=== PATIENT | female | born 1945 | race Caucasian/White ===

== ENCOUNTER 2019-01-19 05:42 | Day surgery (SDC) | payer MEDICARE ==
[2019-01-19] MEDS ORDERED: Lactated Ringers 1,000 ML IV SCH (06:30)
[2019-01-19] MEDS ORDERED: DIPRIVAN 200 MG/20 ML IV ONE (07:46)
--- NOTE | 2019-01-19 08:04 | HP ---
DATE OF SURGERY: 01/19/2019 ADMISSION DIAGNOSIS: Blood in the stool. ANTICIPATED PROCEDURE: Colonoscopy. HISTORY OF PRESENT ILLNESS: A 73 year-old with no family history. No complaints. No recent exam. PAST MEDICAL HISTORY: ALLERGIES: NONE. MEDICATIONS: None. PAST SURGICAL HISTORY: Cholecystectomy. Hysterectomy. SOCIAL HISTORY: Negative. FAMILY HISTORY: Negative. REVIEW OF SYSTEMS: Negative. PHYSICAL EXAMINATION: VITAL SIGNS: Normal. CHEST: Clear. COR: Regular. ABDOMEN: Satisfactory. IMPRESSION: Blood per stool. PLAN: Colonoscopy.
[2019-01-19] MEDS ORDERED: Lactated Ringers 1,000 ML IV ONE (08:40)
[2019-01-19 09:19] VITALS: O2SAT 100
[2019-01-19 09:52] VITALS: BP 105/65; PULSE 61
--- NOTE | 2019-01-19 13:11 | OP ---
SURGERY DATE/TIME: 01/19/2019819 PREOPERATIVE DIAGNOSIS: Heme-positive stool. POSTOPERATIVE DIAGNOSIS: Large sessile rectal polyp on the second rectal valve of [place]. PROCEDURES: 1) Colonoscopy complete to cecum. 2) Hot snare polypectomy x1 of a large polyp. SURGEON: Silvio Mota M.D. PLACEMENT SPECIALIST: Dre Figueredo M.D. ANESTHESIA: MAC. COMPLICATIONS: None. CONDITION: Stable. INDICATION: A patient requiring evaluation. DESCRIPTION OF PROCEDURE: Taken to endoscopy. Anal digital examination satisfactory. Scope introduced. On the second rectal valve, a large 80% pedunculated 20% sessile tumor was present. Scope advanced to the cecum. Base of cecum, ileocecal valve and appendiceal orifice normal. Ascending, hepatic, transverse, splenic, descending, sigmoid was normal. This polyp was taken in two bites with hot snare. It was close to being totally removed. It was touched up with hot biopsy forceps. Hemostasis was adequate. It was all placed in a bag and removed. IMPRESSION: If this benign will come back in three months and refulgurate this area. If it is malignant, we will discuss this.
== END 2019-01-19 10:15 | disposition home or self-care (01) ==
LOC: SDC 05:42
PROVIDERS: ATTEND Surgery
DX: D12.8 Benign neoplasm of rectum (principal); K92.1 Melena
CPT/HCPCS: 99100; J2704

== ENCOUNTER 2019-05-25 07:59 | Day surgery (SDC) | payer MEDICARE ==
--- NOTE | 2019-05-25 07:47 | HP ---
DATE OF SURGERY: 05/25/2019 ANTICIPATED PROCEDURE: Limited C-scope. HISTORY OF PRESENT ILLNESS: The patient had a tubulovillous adenoma with focal high-grade dysplasia. She presents for follow up limited exam. She is 73 years old. Three month follow up PAST MEDICAL HISTORY: ALLERGIES: MEPERIDINE. MEDICATIONS: None. PAST SURGICAL HISTORY: Cholecystectomy. Hysterectomy. SOCIAL HISTORY: Negative. FAMILY HISTORY: Negative. REVIEW OF SYSTEMS: Negative. PHYSICAL EXAMINATION: VITAL SIGNS: Normal. CHEST: Clear. COR: Regular. IMPRESSION: Path report tubulovillous adenoma with high-grade dysplasia located at the second rectal valve. PLAN: Short follow up.
[~2019-05-25 07:59] MED LIST: Lactated Ringers 1,000 ML IV SCH
[2019-05-25] MEDS ORDERED: Lactated Ringers 1,000 ML IV ONE ×2 (08:05→10:33)
[2019-05-25] MEDS ORDERED: DIPRIVAN 200 MG/20 ML IV ONE ×2 (08:07→08:19)
[2019-05-25] MEDS ORDERED: Ketamine HCl 50 MG/ML ONE (08:08)
[2019-05-25 10:56] VITALS: O2SAT 99
--- NOTE | 2019-05-25 11:01 | OP ---
SURGERY DATE/TIME: 05/25/2019 1007 PREOPERATIVE DIAGNOSIS: Atypical sessile polyp of the rectum follow up. POSTOPERATIVE DIAGNOSIS: A 1.4 cm polypoid lesion at the previous site. PROCEDURE: Hot snare polypectomy of 1.4 cm polyp, limited exam to 20 cm. SURGEON: Silvio Mota M.D. ANESTHESIA: MAC. COMPLICATIONS: None. CONDITION: Stable. INDICATION: The patient has a sessile polyp in the rectum. She presents for three month follow up. DESCRIPTION OF PROCEDURE: She is taken to endoscopy. MAC sedation provided. Anal digital examination satisfactory. Scope introduced. Polyp is present on the second rectal valve. It was advanced up to 20. The exam was normal up to 20. It was brought back to the polyp and it was taken with a snare and the base was excellent totally removed, pathology pending. The patient tolerated the procedure satisfactorily. We estimate to re-examine the patient in six months with a similar process of limited colonoscopy with a single enema.
[2019-05-25 11:03] VITALS: BP 136/48; PULSE 64
== END 2019-05-25 11:10 | disposition home or self-care (01) ==
LOC: SDC 07:59
PROVIDERS: ATTEND Surgery
DX: Z09 Encounter for follow-up examination after completed treatment for conditions other than malignant neoplasm (principal); D12.8 Benign neoplasm of rectum; Z87.19 Personal history of other diseases of the digestive system
CPT/HCPCS: 99100; J2704

== ENCOUNTER 2020-02-15 08:00 | Day surgery (SDC) | payer MEDICARE ==
--- NOTE | 2020-02-09 11:25 | HP ---
DATE OF SURGERY: 02/15/2020 HISTORY OF PRESENT ILLNESS: The patient presents with six month follow up from a colonoscopy. She had a colonoscopy and was found to have large polyp in the rectal area. She had several bites of this polyp with a hot snare. Close to being totally removed. She presents for follow up for re-evaluation of this area. She had a tubulovillous adenoma with high grade dysplasia on the pathology of her last colonoscopy. PAST MEDICAL HISTORY: None reported. PAST SURGICAL HISTORY: Cholecystectomy. Hysterectomy. ALLERGIES: MEPERIDINE. MEDICATIONS: None reported. FAMILY HISTORY: None reported. SOCIAL HISTORY: None reported. REVIEW OF SYSTEMS: CONSTITUTIONAL: Denies fever or chills. CHEST: Denies shortness of breath. CVS: Denies chest pain. ABDOMEN: Denies abdominal, nausea, vomiting, diarrhea, constipation or rectal bleeding. : Denies dysuria or hematuria. PHYSICAL EXAMINATION: GENERAL: No acute distress. CHEST: Nonlabored. No shortness of breath. CVS: Regular rate and rhythm. ABDOMEN: Soft, nontender to palpation. EXTREMITIES: No edema. NEUROLOGIC: Alert. PSYCHIATRIC: Appropriate. IMPRESSION: Follow up for piecemeal removal of large rectal polyp with high grade dysplasia. PLAN: Limited colonoscopy. As dictated by Zully Martinez NP.
[2020-02-15] MEDS ORDERED: Lactated Ringers 1,000 ML IV ONE (08:11)
[2020-02-15] MEDS ORDERED: Zofran 4 MG/2 ML VIAL ONE (11:21)
[2020-02-15] MEDS ORDERED: Ketamine HCl 50 MG/ML ONE (11:21)
[2020-02-15] MEDS ORDERED: DIPRIVAN 200 MG/20 ML IV ONE (11:21)
[2020-02-15 12:49] VITALS: O2SAT 96
[2020-02-15 12:56] VITALS: BP 140/71; PULSE 59
--- NOTE | 2020-02-15 13:52 | OP ---
SURGERY DATE/TIME: 02/15/2020 1118 PREOPERATIVE DIAGNOSIS: Six month follow up of atypical rectal polyp. POSTOPERATIVE DIAGNOSIS: I believe it is totally gone. Very nice healed scar. Just off to the lateral edge just a small 2 mm bump that was taken with hot biopsy forceps. The exam was limited to 20 cm with hot polypectomy x1. PROCEDURE: Colonoscopy complete to cecum. SURGEON: Silvio Mota M.D. ANESTHESIA: MAC. COMPLICATIONS: None. CONDITION: Stable. INDICATION: Patient requiring evaluation. DESCRIPTION OF PROCEDURE: Taken to endoscopy. MAC sedation provided. Anal digital examination satisfactory. Scope introduced. Scar was visible. Scope advanced about 20 cm and pulled back to 8 cm. It was on a rectal fold. As noted, I believe the previous polyp is totally gone. There was probably just a hyperplastic area at one lateral corner that was taken with hot biopsy forceps. PLAN: Follow up in two and a half years for a three year follow up exam.
== END 2020-02-15 13:00 | disposition home or self-care (01) ==
LOC: SDC 08:00
PROVIDERS: ATTEND Surgery
DX: Z09 Encounter for follow-up examination after completed treatment for conditions other than malignant neoplasm (principal); Z87.19 Personal history of other diseases of the digestive system; K62.1 Rectal polyp; K63.5 Polyp of colon
CPT/HCPCS: 88305; 99100; J2405; J2704

== ENCOUNTER 2021-04-13 16:02 | Emergency (ER) | payer MEDICARE ==
[2021-04-13] MEDS ORDERED: TYLENOL 325 MG PO STA (16:57)
--- NOTE | 2021-04-13 17:13 | ERPHSYRPT ---
- History of Present Illness Time Seen by Provider: 04/13/21 16:23 Source: patient Exam Limitations: no limitations Patient Subjective Stated Complaint: Fall Triage Nursing Assessment: Patient ambulated back to ED and transferred self to bed. Patient A+O X3. Patient's skin pink, warm and dry. Patient complains of tripping over a couple of steps landing on her chest. Patient complains of right sided breast/rib pain 02/08. No bruising or visible injuries noted. Physician History: 75 years old female presented in the ER with chief complaint of fall. Patient reports she tripped on steps while getting into her living room and fell forward hitting her chest against the concrete floor and did hit her right forehead/eyebrow area with a small abrasion with minimal bleeding which stopped after applying pressure. Does not have any headache, no visual disturbance, no neck pain, no dizziness or lightheadedness before or after the fall. No loss of consciousness. Is complaining of some discomfort in the anterior mid chest with palpation and taking a deep breath but no difficulty breathing otherwise. No injury anywhere else. Up-to-date with tetanus. Occurred: just prior to arrival Reason for Fall: tripped, fell from standing pos Injuries/Pain Location: face, chest Loss of Consciousness: no loss of consciousness Quality: dullness Severity of Pain-Max: moderate Severity of Pain-Current: moderate Modifying Factors: Improves With: immobilization. Worsens With: movement Associated Symptoms (Fall): chest pain, No abdominal pain, No back pain, No confusion, No dizziness, No extremity injury, No muscle spasms, No nausea, No neck pain, No ringing in ears, No seizures, No shortness of breath, No slurred speech, No trouble walking, No vomiting, No vision changes Allergies/Adverse Reactions: meperidine [From Demerol] Adverse Reaction (Verified 04/13/21 16:38) Vomiting Home Medications: Simvastatin 10 mg [Zocor 10MG] 1 tab PO DAILY 04/13/21 [History] Hx Influenza Vaccination/Date Given: No Hx Pneumococcal Vaccination/Date Given: No Immunizations Up to Date: Yes Travel Risk - International Travel Have you traveled outside of the country in past 3 weeks: No - Coronavirus Screening Are you exhibiting any of the following symptoms?: No Close contact with a COVID-19 positive Pt in past 14-21 Days: No - Vaccine Status Have you recieved a Covid-19 vaccination: Yes [employer]: Pfizer - Vaccination Dates Date of 2cond Vaccination (if applicable): waiting - Review of Systems Constitutional: No Symptoms Eyes: No Symptoms, Other (Right eyebrow area lesion) Ears, Nose, & Throat: No Symptoms Respiratory: No Symptoms Cardiac: Chest Pain Abdominal/Gastrointestinal: No Symptoms Genitourinary Symptoms: No Symptoms Musculoskeletal: No Symptoms Neurological: No Symptoms Psychological: No Symptoms Endocrine: No Symptoms Hematologic/Lymphatic: No Symptoms Immunological/Allergic: No Symptoms - Past Medical History Pertinent Past Medical History: Yes Neurological History: No Pertinent History ENT History: No Pertinent History Cardiac History: No Pertinent History Respiratory History: No Pertinent History Endocrine Medical History: No Pertinent History Musculoskeletal History: No Pertinent History GI Medical History: No Pertinent History History: No Pertinent History Psycho-Social History: No Pertinent History Female Reproductive Disorders: No Pertinent History - Past Surgical History Past Surgical History: Yes Neuro Surgical History: No Pertinent History Cardiac: No Pertinent History Respiratory: No Pertinent History Gastrointestinal: Appendectomy Genitourinary: No Pertinent History Musculoskeletal: Other Female Surgical History: Hysterectomy, Other Other Surgical History: "prolapse surgery" disc replaced in neck in 1986, appendectomy as a child - Social History Smoking Status: Never smoker Exposure to second hand smoke: No Drug Use: none Patient Lives Alone: No - Female History Hx Now: No - Nursing Vital Signs Nursing Vital Signs: Initial Vital Signs Temperature 98.6 F 04/13/21 16:39 Pulse Rate 81 04/13/21 16:39 Respiratory Rate 18 04/13/21 16:39 Blood Pressure 135/71 04/13/21 16:39 O2 Sat by Pulse Oximetry 99 04/13/21 16:39 Pain Scale Pain Intensity 7 - Donna Coma Score Best Eye Response (Donna): (4) open spontaneously Best Verbal Response ([place]): (5) oriented Best Motor Response (Donna): (6) obeys commands Donna Total: 15 - Physical Exam General Appearance: no apparent distress, alert Head Injury: contusions, lacerations (Superficial right lateral eyebrow area), tenderness (Right eyebrow area), No active bleeding, No Toussaint's Sign, No raccoon eyes, No swelling Eye Exam: PERRL/EOMI, eyes nml inspection ENT Exam: airway nml, evidence of ENT injury, No dental injury Neck Exam: supple, trachea midline, full range of motion, normal alignment Respiratory/Chest Exam: chest tenderness (Anterior mid to lower chest wall sternum area), normal breath sounds, No respiratory distress Cardiovascular Exam: normal heart sounds, regular rate/rhythm Gastrointestinal Exam: soft, No tenderness Back Exam: normal inspection, normal range of motion Extremity Exam: normal inspection, normal range of motion, capillary refill <3 sec, pelvis stable Neurologic Exam: alert, oriented x 3, cooperative, picker and sorter load and unload II-XII nml as tested, normal mood/affect, nml cerebellar function, nml station & gait, sensation nml Skin Exam: normal color SpO2 Interpretation: normal SpO2: 99 O2 Delivery: Room Air Ordered Tests: Active Orders 24 hr Category Date Time Status EKG-ER Only STAT Care 04/13/21 17:11 Completed CERVICAL SPINE WO CONTRAST [CT] Stat Exams 04/13/21 16:57 Taken CHEST 2 VIEWS (PA AND LAT) Stat Exams 04/13/21 17:33 Taken HEAD WITHOUT CONTRAST [CT] Stat Exams 04/13/21 16:57 Taken TROPONIN Q3H Lab 04/13/21 17:43 Completed Medication Summary Discontinued Medications Generic Name Dose Route Start Last Admin Trade Name Hugoq PRN Reason Stop Dose Admin Acetaminophen 650 mg 04/13/21 16:57 04/13/21 17:40 Tylenol 325 Mg PO 04/13/21 16:58 650 mg STAT STA Administration Acetaminophen Confirm 04/13/21 17:39 Tylenol 325 Mg Administered 04/13/21 17:40 Dose 650 mg .ROUTE .[employer] Lab/Rad Data: Laboratory Results 04/13/21 Range/Units 17:43 Troponin I < 0.012 (0.000-0.034) ng/mL - Progress Progress: improved, re-examined Progress Note: 04/13/21 19:23 75 years old is evaluated for tripping and falling forward hitting her right forehead and chest wall. Minimal tenderness on the chest wall without any crepitus or step in deformity. Patient refused EKG. Troponins are normal. Chest x-ray reviewed by me did not reveal any obvious trauma related finding, official report is pending and patient does not want to stay in the ER and wants to leave. CT head and cervical spine are negative for any acute findings. Abrasion is clean. Patient is up-to-date with immunization. Nonfocal neuro exam otherwise. No injury anywhere else. Discussed signs symptoms of worsening needing return to ER which she seems understanding. Stable for discharge. Counseled pt/family regarding: lab results, diagnosis, need for follow-up, rad results - Departure Departure Disposition: Home Clinical Impression: Forehead contusion Qualifiers: Encounter type: initial encounter Qualified Code(s): S00.83XA - Contusion of other part of head, initial encounter Contusion, chest wall Qualifiers: Encounter type: initial encounter Laterality: unspecified laterality Qualified Code(s): S20.219A - Contusion of unspecified front wall of thorax, initial encounter Fall Qualifiers: Encounter type: initial encounter Qualified Code(s): W19.XXXA - Unspecified fal l, initial encounter Condition: Stable Critical Care Time: No Referrals: CELESTINO VELEZ MD [Primary Care Provider] - (1-2 days for reevaluation) Instructions: Closed Head Injury (DC), Contusion (DC) Additional Instructions: Take Tylenol as needed. Follow head injury instructions and return to ER for any worsening. Keep your abrasion clean and apply bacitracin. Follow-up with primary care for reevaluation.
[2021-04-13] MEDS ORDERED: TYLENOL 325 MG ONE (17:39)
[2021-04-13 17:43] VITALS: BP 104/62; PULSE 72
[2021-04-13 22:04] VITALS: O2SAT 99
--- NOTE | 2021-04-14 08:47 | XRAY ---
Indication: Status post fall. Multiple contiguous axial images obtained through the head without contrast. Comparison: None Age-appropriate global atrophy and minimal periventricular degenerative micro-ischemia bilaterally. No acute intracranial hemorrhage, abnormal extra-axial fluid collection, or mass effect. Fourth ventricle is midline without hydrocephalus. [place]-white matter differentiation preserved. Bony calvarium intact. Visualized paranasal sinuses and mastoid air cells are clear. Impression: Nonacute senile brain. Comment: Preliminary interpretation made by [facility]. No critical discrepancy.
--- NOTE | 2021-04-14 08:47 | XRAY ---
Indication: Status post fall. Comparison: None PA/lateral chest demonstrates normal heart and lungs with incidental tiny calcified granulomas. Bony thorax intact with mild osteopenia and degenerative changes. Comment: Preliminary interpretation made by [facility]. No critical discrepancy.
--- NOTE | 2021-04-14 08:51 | XRAY ---
Indication: Status post fall. Multiple contiguous axial images obtained through the cervical spine. Sagittal and coronal reformatted images obtained. Comparison: None Axial images negative for acute fracture, suspicious bony lesions, or spinal canal stenosis. Minimal C4-C5 endplate spurring and moderate multilevel bilateral degenerative facet hypertrophy. There has been C5-C6 fusion. Sagittal and coronal reformatted images demonstrates cervical lordotic straightening, positional versus paraspinal spasm. Minimal C4-C5 disc space narrowing. No acute compression fracture, subluxation, or jumped facet. Normal appearing craniocervical junction. Visualized noncontrasted soft tissues demonstrates minimal bilateral carotid calcifications. Right thyroid is heterogeneous with a inferior 1.8 x 1.9 cm heterogeneous nodule. Lung apices are clear. Impression: 1. Cervical lordotic straightening, positional versus paraspinal spasm. Negative for acute fracture/subluxation. 2. Multilevel degenerative changes and C5-C6 fusion. 3. Incidental heterogeneous right thyroid with inferior pole nodule. Sonogram may yield further information if clinically warranted. Comment: Preliminary interpretation made by [facility]. No critical discrepancy.
== END 2021-04-13 19:31 | disposition home or self-care (01) ==
LOC: ED 16:02
DX: S00.83XA Contusion of other part of head, initial encounter (principal); S20.219A Contusion of unspecified front wall of thorax, initial encounter; W10.8XXA Fall (on) (from) other stairs and steps, initial encounter; S00.211A Abrasion of right eyelid and periocular area, initial encounter; R07.89 Other chest pain; Z79.899 Other long term (current) drug therapy
CPT/HCPCS: 36415; 70450; 71046; 72125; 84484; 93005; 99284; A9270-GY

== ENCOUNTER 2023-02-10 14:53 | Day surgery (SDC) | payer MEDICARE ==
[2023-02-10] MEDS ORDERED: BUPIVACAINE 0.5% VIAL IJ ONE (14:54)
[2023-02-10] MEDS ORDERED: LIDOCAINE HCL 1% 50 MG/5 ML VL PF IJ ONE (14:54)
[2023-02-10] MEDS ORDERED: Depo-Medrol 40 MG/ML IM ONE (14:54)
--- NOTE | 2023-02-10 19:19 | XRAY ---
Indication: Right shoulder and right subacromial bursa injection. Intraoperative fluoroscopy provided for 18 seconds. 2 digital spot images submitted for interpretation demonstrates needle tip projecting over the right glenohumeral joint superiorly. Second needle tip subacromial. Small amount of contrast injected for both needle tip placement. Correlate with intraoperative findings/report.
--- NOTE | 2023-02-11 10:13 | XRAY ---
18 seconds of fluoroscopy was used in surgery for a right intra-articular shoulder and subacromial bursa injection.
== END 2023-02-10 17:27 | disposition home or self-care (01) ==
LOC: SDC-PAIN 14:53
PROVIDERS: ATTEND Psychiatry & Neurology Pain Medicine
DX: M19.011 Primary osteoarthritis, right shoulder (principal); M75.51 Bursitis of right shoulder; Z79.899 Other long term (current) drug therapy
CPT/HCPCS: 20610; 73030; 77002; J1030; J2001; Q9966

== ENCOUNTER 2023-08-24 18:04 | Emergency (ER) | payer MEDICARE ==
[2023-08-24 18:41] VITALS: TEMP 98.8
[2023-08-24 20:21] VITALS: BP 133/68; PULSE 77; RESP 18; O2SAT 96
--- NOTE | 2023-08-24 21:06 | ERPHSYRPT ---
- History of Present Illness Time Seen by Provider: 08/24/23 18:45 Source: patient Exam Limitations: no limitations Patient Subjective Stated Complaint: mouth pain Triage Nursing Assessment: patient reports mouth pain and a lesion under tongue on mucosa. area appears to have something in it that is white in color Physician History: Patient is a 77-year-old female presents to our emergency department for evaluation of a lesion under her tongue. The lesion is near the submandibular gland duct, [place]'s duct. There is tenderness at this area. Pain reproduced with palpation. Pain improved with rest. No trauma. No difficulty swallowing or breathing. Symptoms are mild to moderate in intensity. Patient declined pain medication. Patient voices no other complaints at this time. Portions of this note were created with voice recognition technology. There may be grammatical, spelling, punctuation or sound alike errors Timing/Duration: today Severity: moderate Allergies/Adverse Reactions: meperidine [From Demerol] Adverse Reaction (Verified 08/24/23 18:43) Vomiting Home Medications: Simvastatin 10 mg [Zocor 10MG] 100 tab PO DAILY 04/13/21 [History] Biotin 5,000 mcg PO DAILY 03/19/23 [History] Ubidecarenone [Co Q-10] 200 mg PO DAILY 03/19/23 [History] Sertraline HCl 50 mg [Zoloft 50 mg Tablet] 50 mg PO QDP 08/24/23 [History] Hx Influenza Vaccination/Date Given: Yes Hx Pneumococcal Vaccination/Date Given: No Travel Risk - International Travel Have you traveled outside of the country in past 3 weeks: No - Coronavirus Screening Are you exhibiting any of the following symptoms?: No Close contact with a COVID-19 positive Pt in past 14-21 Days: No - Vaccine Status Have you recieved a Covid-19 vaccination: Yes Rn Otolaryngology: Unknown - Vaccination Dates Dates if Unknown: unknown - Review of Systems Constitutional: No Symptoms, No Fever, No Chills Eyes: No Symptoms Ears, Nose, & Throat: No Symptoms Respiratory: No Symptoms, No Cough, No Dyspnea Cardiac: No Symptoms, No Chest Pain, No Edema, No Syncope Abdominal/Gastrointestinal: No Symptoms, No Abdominal Pain, No Nausea, No Vomiting, No Diarrhea Genitourinary Symptoms: No Symptoms, No Dysuria Musculoskeletal: No Symptoms, No Back Pain, No Neck Pain Skin: No Symptoms, No Rash Neurological: No Symptoms, No Dizziness, No Focal Weakness, No Sensory Changes Psychological: No Symptoms Endocrine: No Symptoms Hematologic/Lymphatic: No Symptoms Immunological/Allergic: No Symptoms All Other Systems: Reviewed and Negative - Past Medical History Pertinent Past Medical History: Yes Neurological History: TIA ENT History: No Pertinent History Cardiac History: High Cholesterol Respiratory History: Pneumonia Endocrine Medical History: No Pertinent History Musculoskeletal History: No Pertinent History GI Medical History: No Pertinent History History: No Pertinent History Psycho-Social History: No Pertinent History Female Reproductive Disorders: No Pertinent History Other Medical History: SURGICAL HISTORY: HYSTERECTOMY, LEFT ELBOW SCOPE - Past Surgical History Past Surgical History: Yes Neuro Surgical History: No Pertinent History Cardiac: No Pertinent History Respiratory: No Pertinent History Gastrointestinal: Appendectomy Genitourinary: No Pertinent History Musculoskeletal: Other Female Surgical History: Hysterectomy, Other Other Surgical History: "prolapse surgery" disc replaced in neck in 1986, appendectomy as a child - Social History Smoking Status: Never smoker Exposure to second hand smoke: No Drug Use: none Patient Lives Alone: No - Nursing Vital Signs Nursing Vital Signs: Initial Vital Signs Temperature 98.8 F 08/24/23 18:32 Pulse Rate 91 H 08/24/23 18:32 Respiratory Rate 16 08/24/23 18:32 Blood Pressure 143/61 08/24/23 18:32 O2 Sat by Pulse Oximetry 97 08/24/23 18:32 Pain Scale Pain Intensity 6 - Physical Exam General Appearance: no apparent distress, alert Eye Exam: PERRL/EOMI, eyes nml inspection Ears, Nose, Throat Exam: normal ENT inspection, TMs normal, pharynx normal, moist mucous membranes Neck Exam: normal inspection, non-tender, supple, full range of motion Respiratory Exam: normal breath sounds, lungs clear, No respiratory distress Cardiovascular Exam: regular rate/rhythm, normal heart sounds, normal peripheral pulses Gastrointestinal/Abdomen Exam: soft, normal bowel sounds, No tenderness, No mass Back Exam: normal inspection, normal range of motion, No CVA tenderness, No vertebral tenderness Extremity Exam: normal inspection, normal range of motion, pelvis stable Neurologic Exam: alert, oriented x 3, cooperative, normal mood/affect, nml cerebellar function, nml station & gait, sensation nml, No motor deficits Skin Exam: normal color, warm, dry, No rash Lymphatic Exam: No adenopathy SpO2 Interpretation: normal SpO2: 96 O2 Delivery: Room Air - Course Nursing assessment & vital signs reviewed: Yes - CT Exams Soft Tissue Neck CT Interpretation: Tele-radiologist Report (No comps. Mildly enlarged right thyroid better evaluated with outpatient ultrasound. Mild C3-C7 degenerative disc disease. Remaining neck negative) Ordered Tests: Active Orders 24 hr Category Date Time Status NECK WO CONTRAST [CT] Stat Exams 08/24/23 19:08 Taken Medication Summary Discontinued Medications Generic Name Dose Route Start Last Admin Trade Name Imer PRN Reason Stop Dose Admin Amoxicillin/Clavulanate Potassium 875 mg 08/24/23 21:13 08/24/23 21:17 Amox Tr/Potassium Clavulanate 875 Mg Tablet PO 08/24/23 21:14 875 mg STAT ONE Administration Amoxicillin/Clavulanate Potassium Confirm 08/24/23 21:15 Amox Tr/Potassium Clavulanate 875 Mg Tablet Administered 08/24/23 21:16 Dose 875 mg .ROUTE .STK-MED ONE - Progress Progress: improved Progress Note: 77-year-old female presents to our ED for evaluation of pain to her sublingual region. Fullness observed at the right [place]'s duct. There is some tenderness at the submandibular gland as well. CT scan incidentally observed a enlarged right thyroid gland. Patient advised of the findings. Patient agrees to follow-up for an outpatient ultrasound of the thyroid gland for further evaluation as recommended by radiologist. Additionally patient received a dose of Augmentin in our ED. A prescription was the same to cover for possible salivary gland infection. A referral to ENT was provided as well to further evaluate the possibility of occluded salivary duct. Instructions given accordingly. Plan of care discussed with patient. She agrees to follow-up with her ENT doctor tomorrow. Contact name and number was provided to patient. Patient states he is ready for discharge. She declined pain medication. She voices no other complaints or concerns at this time. Portions of this note were created with voice recognition technology. There may be grammatical, spelling, punctuation or sound alike errors Complexity problem addressed is moderate acute complicated No critical care time Complexity of data reviewed and analyzed is moderate. Test ordered test revie wed. Results analyzed and correlated clinically with history and physical examination. Risk of complication and or risk of morbidity/mortality of patient management is moderate. A prescription for Augmentin forwarded to patient's pharmacy. Patient be discharged home. She agrees to follow-up with ENT, Katie Alaniz. Vital stable. Patient explained the importance of sialagogues warm compress and antibiotic therapy as recommended. Patient understands and agrees to the importance of follow-up regarding the right thyroid abnormality observed on today's CAT scan. Patient agrees to obtain outpatient ultrasound for further evaluation as per her primary care doctor. Patient will call tomorrow to schedule a follow-up appointment with her primary doctor for an ultrasound Portions of this note were created with voice recognition technology. There may be grammatical, spelling, punctuation or sound alike errors 08/24/23 21:25 Counseled pt/family regarding: diagnosis, need for follow-up, rad results - Departure Departure Disposition: Home Clinical Impression: Enlarged thyroid, Submandibular duct obstruction Condition: Stable Critical Care Time: No Referrals: CELESTINO VELEZ MD [Primary Care Provider] - Follow up/PCP as directed KATIE ALANIZ MD [NON-STAFF PHY W/O PRIVILEGES] - Follow up/PCP as directed Instructions: Salivary Gland Infection (DC) Additional Instructions: You will require an outpatient ultrasound of your thyroid gland to further evaluate the abnormality observed on today's CAT scan. Please follow-up with the ENT. Please call the number indicated for follow-up Discharge/Care Plan CATRACHITA GARCIA was seen on 08/24/23 in the Emergency Room. The patient was counseled regarding Diagnosis,Lab results, Imaging studies, need for follow up and when to return to the Emergency Room. Prescriptions given: Discharge Note I have spoken with the patient and/or caregivers. I have explained the patient's condition, diagnosis and treatment plan based on the information available to me at this time. I have answered the patient's and/or caregiver's questions and addressed any concerns. The patient and/or caregivers have as good understanding of the patient's diagnosis, condition and treatment plan as can be expected at this point. The vital signs have been stable. The patient's condition is stable and appropriate for discharge from the emergency department. The patient will pursue further outpatient evaluation with the primary care physician or other designated or consulting physician as outlined in the discharge instructions. The patient and/or caregivers are agreeable to this plan of care and follow-up instructions have been explained in detail. The patient and/or caregivers have received these instruction. The patient/and or caregivers are aware that any significant change in condition or worsening of symptoms should prompt an immediate return to this or the closest emergency department or call 911. Prescriptions: Amox Tr/Potass Clav. 875 mg [Augmentin 875-125 Tablet] 875 mg PO BID 7 Days #14 tablet
[2023-08-24] MEDS ORDERED: Augmentin 875-125 Tablet PO ONE (21:13)
[2023-08-24] MEDS ORDERED: Augmentin 875-125 Tablet ONE (21:15)
--- NOTE | 2023-08-25 08:37 | XRAY ---
Indication: Right tongue swelling. Sore throat. Difficulty swallowing. Multiple contiguous axial images obtained through the neck without contrast. Comparison: None Multiple bilateral dental amalgams produces beam artifact. Parotid glands are bilaterally symmetric. Right submandibular gland atrophic. Absent left submandibular gland. No salivary calculus. A few centimeter/subcentimeter cervical and centimeters lymph nodes, none pathologically enlarged. Heterogeneous enlarged right thyroid with 2.0 x 1.9 x 2.7 cm lower pole heterogeneous nodule. Supra and infraglottic airway widely patent. Normal epiglottis. Osseous structures intact with osteopenia, cervical lordotic reversal, mild multilevel degenerative changes, and prior C5-C6 fusion. Base of brain and lung apices are unremarkable. Visualized paranasal sinuses and mastoid air cells are clear. Impression: 1. Heterogeneous right thyroid with heterogeneous nodule. Thyroid sonogram may yield further information. 2. Chronic bony findings. 3. Remaining CT neck without contrast exam is negative.
== END 2023-08-24 21:35 | disposition home or self-care (01) ==
LOC: ED 18:04
DX: K11.8 Other diseases of salivary glands (principal); E04.9 Nontoxic goiter, unspecified; E78.5 Hyperlipidemia, unspecified; Z79.899 Other long term (current) drug therapy
CPT/HCPCS: 70490; 99283; A9270-GY

== ENCOUNTER 2023-11-07 20:31 | Emergency (ER) | payer MEDICARE ==
--- NOTE | 2023-11-07 20:35 | ERPHSYRPT ---
- History of Present Illness Time Seen by Provider: 11/07/23 20:34 Source: patient, family Exam Limitations: no limitations Physician History: pt complaining of back pain which is actually left flank pain - no hx of trauma. had GB out and was told by PMD might also have Gb problem in letter so came in as was worse tongiht. No hx kidney sone. pain with palpation but abd soft nontender. is here as confirming source in ED. discussed risks/benefits with pt and spouse for CT abd, decline pain meds, CBC. CMP, Lipase, Amylase, Lactate, UA and they wish to continue. these are oreder. results discussed. Timing/Duration: week(s) Method of Injury: unknown Quality: burning, dull, radiating (to back) Severity of Pain-Max: moderate Severity of Pain-Current: moderate Modifying Factors: Improves With: immobilization, movement Associated Symptoms: denies symptoms Previous symptoms: same symptoms as today Allergies/Adverse Reactions: meperidine [From Demerol] Adverse Reaction (Verified 11/07/23 20:57) Vomiting Home Medications: Simvastatin 10 mg [Zocor 10MG] 100 tab PO DAILY 04/13/21 [History] Biotin 5,000 mcg PO DAILY 03/19/23 [History] Ubidecarenone [Co Q-10] 200 mg PO DAILY 03/19/23 [History] Sertraline HCl 50 mg [Zoloft 50 mg Tablet] 50 mg PO QDP 08/24/23 [History] Hx Influenza Vaccination/Date Given: Yes Hx Pneumococcal Vaccination/Date Given: No - Review of Systems Constitutional: No Fever, No Chills Eyes: No Symptoms Ears, Nose, & Throat: No Symptoms Respiratory: No Cough, No Dyspnea Cardiac: No Chest Pain, No Edema, No Syncope Abdominal/Gastrointestinal: No Abdominal Pain, No Nausea, No Vomiting, No Diarrhea Genitourinary Symptoms: Flank Pain (rad to back), No Dysuria Musculoskeletal: No Back Pain, No Neck Pain Skin: No Rash Neurological: No Dizziness, No Focal Weakness, No Sensory Changes Psychological: No Symptoms Endocrine: No Symptoms Hematologic/Lymphatic: No Symptoms Immunological/Allergic: No Symptoms All Other Systems: Reviewed and Negative - Past Medical History Pertinent Past Medical History: Yes Neurological History: TIA ENT History: No Pertinent History Cardiac History: High Cholesterol Respiratory History: Pneumonia Endocrine Medical History: No Pertinent History Musculoskeletal History: No Pertinent History GI Medical History: No Pertinent History History: No Pertinent History Psycho-Social History: No Pertinent History Female Reproductive Disorders: No Pertinent History Other Medical History: SURGICAL HISTORY: HYSTERECTOMY, LEFT ELBOW SCOPE - Past Surgical History Past Surgical History: Yes Neuro Surgical History: No Pertinent History Cardiac: No Pertinent History Respiratory: No Pertinent History Gastrointestinal: Appendectomy Genitourinary: No Pertinent History Musculoskeletal: Other Female Surgical History: Hysterectomy, Other Other Surgical History: "prolapse surgery" disc replaced in neck in 1986, appendectomy as a child - Social History Smoking Status: Never smoker Exposure to second hand smoke: No Drug Use: none Patient Lives Alone: No - Nursing Vital Signs Nursing Vital Signs: Initial Vital Signs Temperature 97.0 F 11/07/23 20:42 Pulse Rate 74 11/07/23 20:42 Respiratory Rate 18 11/07/23 20:42 Blood Pressure 136/69 11/07/23 20:42 O2 Sat by Pulse Oximetry 97 11/07/23 20:42 Pain Scale Pain Intensity [Left Lower 8 Back] Pain Intensity 7 - Physical Exam General Appearance: no apparent distress, alert Eye Exam: PERRL/EOMI, eyes nml inspection Neck Exam: normal inspection, non-tender, supple, full range of motion, No meningismus, No midline tenderness Respiratory Exam: normal breath sounds, lungs clear, No respiratory distress Cardiovascular Exam: regular rate/rhythm, normal heart sounds Gastrointestinal Exam: soft, No tenderness, No mass Pelvic Exam: deferred Rectal Exam: deferred Back Exam: normal inspection, normal range of motion, No vertebral tenderness, N o muscle spasm, No point tenderness Extremity Exam: normal inspection, normal range of motion, No calf tenderness, No pedal edema Peripheral Pulses: carotid (R): 2+, carotid (L): 2+, femoral (R): 2+, femoral (L): 2+, dorsalis-pedis (R): 2+, dorsalis-pedis (L): 2+ Neurologic Exam: alert, oriented x 3, cooperative, gun barrel finisher II-XII nml as tested, normal mood/affect, nml station & gait, sensation nml, No motor deficits Skin Exam: normal color, warm, dry, No rash SpO2 Interpretation: normal SpO2: 97 O2 Delivery: Room Air - Course Nursing assessment & vital signs reviewed: Yes - CT Exams Abdomen/Pelvis CT Interpretation: Tele-radiologist Report, No appendicitis, Other (right renal cyst. ) Ordered Tests: Active Orders 24 hr Category Date Time Status IV Insertion STAT Care 11/07/23 21:59 Active ABDOMEN AND PELVIS W/0 CONTRAS [CT] Stat Exams 11/07/23 22:00 Completed AMYLASE Stat Lab 11/07/23 22:15 Completed CBC W DIFF Stat Lab 11/07/23 22:15 Completed CMP Stat Lab 11/07/23 22:15 Completed CULTURE,URINE Stat Lab 11/07/23 21:32 Received LIPASE Stat Lab 11/07/23 22:15 Completed Lactic Acid Stat Lab 11/07/23 22:28 Completed TROPONIN Q4H Lab 11/07/23 22:15 Completed TROPONIN Q4H Lab 11/08/23 02:00 Ordered TROPONIN Q4H Lab 11/08/23 06:00 Ordered UA W/RFX UR CULTURE Stat Lab 11/07/23 21:32 Completed UA W/RFX UR CULTURE Stat Lab 11/07/23 22:20 Stop Req Medication Summary Generic Name Dose Route Start Last Admin Trade Name Freq PRN Reason Stop Dose Admin Sodium Chloride 1,000 mls @ 100 mls/hr 11/07/23 22:00 11/07/23 22:49 Sodium Chloride 0.9% 1000 Ml IV 12/07/23 21:59 100 mls/hr .Q10H KORI Administration Discontinued Medications Generic Name Dose Route Start Last Admin Trade Name Freq PRN Reason Stop Dose Admin Acetaminophen 1,000 mg 11/07/23 23:25 11/07/23 23:27 Acetaminophen 500 Mg Tablet PO 11/07/23 23:26 1,000 mg STAT STA Administration Acetaminophen Confirm 11/07/23 23:26 Acetaminophen 500 Mg Tablet Administered 11/07/23 23:27 Dose 1,000 mg .ROUTE .STK-MED ONE Ceftriaxone Sodium 1 gm in 100 mls @ 200 mls/hr 11/07/23 23:04 11/08/23 00:09 Rocephin 1 Gm / 100 Ml Nacl IV 11/07/23 23:33 Infused STAT ONE Infusion Ceftriaxone Sodium Confirm 11/07/23 23:27 Rocephin 1 Gm / 100 Ml Nacl Administered 11/07/23 23:28 Dose 1 gm in 100 mls @ ud IV .STK-MED ONE Lab/Rad Data: Laboratory Result Diagrams 11/07/23 22:15 11/07/23 22:15 Laboratory Results 11/07/23 11/07/23 11/07/23 Range/Units 22:28 22:15 22:15 WBC (4.0-10.5) x10^3/uL RBC (4.1-5.4) x10^6/uL Hgb (12.0-16.0) g/dL Hct (35-47) % MCV (78-100) fL MCH (26-32) pg MCHC (32-36) g/dL RDW (11.5-14.0) % Plt Count (150-450) x10^3/uL MPV (7.5-11.0) fL Gran % (36.0-66.0) % Immature Gran % (Auto) (0.00-0.4) % Nucleat RBC Rel Count (0.00-0.1) % Eos # (Auto) (0-0.5) x10^3/uL Immature Gran # (Auto) (0.00-0.03) x10^3u/L Absolute Lymphs (auto) (1.0-4.6) x10^3/uL Absolute Monos (auto) (0.0-1.3) x10^3/uL Absolute Nucleated RBC (0.00-0.01) x10^3u/L Lymphocytes % (24.0-44.0) % Monocytes % (0.0-12.0) % Eosinophils % (0.00-5.0) % Basophils % (0.0-0.4) % Absolute Granulocytes (1.4-6.9) x10^3/uL Basophils # (0-0.4) x10^3/uL Sodium 139 (135-145) mmol/L Potassium 3.5 (3.5-5.1) mmol/L Chloride 106 (98-107) mmol/L Carbon Dioxide 26 (22-30) mmol/L Anion Gap 10.4 (5-15) MEQ/L BUN 17 (7-17) mg/dL Creatinine 0.72 (0.52-1.04) mg/dL Estimated GFR 87.1 ML/MIN Glucose 106 (74-106) mg/dL Lactic Acid 1.8 (0.4-2.0) Calcium 9.4 (8.4-10.2) mg/dL Total Bilirubin < 0.10 L (0.2-1.3) mg/dL AST 23 (14-36) U/L ALT 16 (0-35) U/L Alkaline Phosphatase 87 (38-126) U/L Troponin I < 0.012 (0.000-0.033) ng/mL Serum Total Protein 6.9 (6.3-8.2) g/dL Albumin 3.8 (3.5-5.0) g/dL Amylase 85 (30-110) U/L Lipase 78 (23-300) U/L Urine Color (Yellow) Urine Appearance (Clear) Urine pH (4.6-8.0) Ur Specific [place] (1.005-1.030) Urine Protein (Negative) Urine Glucose (UA) (Negative) mg/dL Urine Ketones (Negative) Urine Blood (Negative) Urine Nitrite (Negative) Urine Bilirubin (Negative) Urine Urobilinogen (0.2) mg/dL Ur Leukocyte Esterase (Negative) U Hyaline Cast (Auto) (0-2) /LPF Urine Microscopic RBC (0-5) /HPF Urine Microscopic WBC (0-5) /HPF Ur Epithelial Cells (None Seen) /HPF Urine Bacteria (None Seen) /HPF Urine Culture Reflexed (NO) 11/07/23 11/07/23 Range/Units 22:15 21:32 WBC 7.5 (4.0-10.5) x10^3/uL RBC 4.09 L (4.1-5.4) x10^6/uL Hgb 11.8 L (12.0-16.0) g/dL Hct 37.0 (35-47) % MCV 90.5 (78-100) fL MCH 28.9 (26-32) pg MCHC 31.9 L (32-36) g/dL RDW 13.5 (11.5-14.0) % Plt Count 294 (150-450) x10^3/uL MPV 10.0 (7.5-11.0) fL Gran % 46.0 (36.0-66.0) % Immature Gran % (Auto) 0.3 (0.00-0.4) % Nucleat RBC Rel Count 0.0 (0.00-0.1) % Eos # (Auto) 0.20 (0-0.5) x10^3/uL Immature Gran # (Auto) 0.02 (0.00-0.03) x10^3u/L Absolute Lymphs (auto) 3.24 (1.0-4.6) x10^3/uL Absolute Monos (auto) 0.52 (0.0-1.3) x10^3/uL Absolute Nucleated RBC 0.00 (0.00-0.01) x10^3u/L Lymphocytes % 43.3 (24.0-44.0) % Monocytes % 7.0 (0.0-12.0) % Eosinophils % 2.7 (0.00-5.0) % Basophils % 0.7 (0.0-0.4) % Absolute Granulocytes 3.45 (1.4-6.9) x10^3/uL Basophils # 0.05 (0-0.4) x10^3/uL Sodium (135-145) mmol/L Potassium (3.5-5.1) mmol/L Chloride (98-107) mmol/L Carbon Dioxide (22-30) mmol/L Anion Gap (5-15) MEQ/L BUN (7-17) mg/dL Creatinine (0.52-1.04) mg/dL Estimated GFR ML/MIN Glucose (74-106) mg/dL Lactic Acid (0.4-2.0) Calcium (8.4-10.2) mg/dL Total Bilirubin (0.2-1.3) mg/dL AST (14-36) U/L ALT (0-35) U/L Alkaline Phosphatase (38-126) U/L Troponin I (0.000-0.033) ng/mL Serum Total Protein (6.3-8.2) g/dL Albumin (3.5-5.0) g/dL Amylase (30-110) U/L Lipase (23-300) U/L Urine Color Yellow (Yellow) Urine Appearance Clear (Clear) Urine pH 6.5 (4.6-8.0) Ur Specific [place] 1.015 (1.005-1.030) Urine Protein Negative (Negative) Urine Glucose (UA) Negative (Negative) mg/dL Urine Ketones Negative (Negative) Urine Blood Negative (Negative) Urine Nitrite Negative (Negative) Urine Bilirubin Negative (Negative) Urine Urobilinogen 1.0 A (0.2) mg/dL Ur Leukocyte Esterase Large A (Negative) U Hyaline Cast (Auto) NONE SEEN (0-2) /LPF Urine Microscopic RBC 0-2 (0-5) /HPF Urine Microscopic WBC 21-50 A (0-5) /HPF Ur Epithelial Cells Few (None Seen) /HPF Urine Bacteria Moderate A (None Seen) /HPF Urine Culture Reflexed YES (NO) - Progress Progress: improved, re-examined Progress Note: 11/08/23 00:31 pt declined EKG and has the capacity to make this choice. 11/08/23 00:33 discussed findings with pt and spouse and that although we see UTI and it fits her symptoms, there still may be something undetected evolving of a serious nature and that f/u with her is important JULIUS. They wish to proceed with AB for UTI after discussion of risks/benefits and wish outpt Tx rather than further Tx in ER or hospital and have the capacity to make this choice. Jeovanny are also advised to followup her right renal cyst with her DrJulieta Counseled pt/family regarding: lab results, diagnosis, need for follow-up, rad results Medical Desision Making - Independent Historian Additional History obtained from: Spouse - Discussion of managment Reviewed:: Test results, Need for additional workup Agreed on:: Treatment plan, need for follow-up, decision to admit - Diagnostic Testing Diagnostic test were ordered, analyzed, and reviewed by me: Yes Radiological Interpretation: Interpreted by me, Reviewed by me, Teleradiologist Report - Risk of complications The pt has a mod risk of morbidity or mortality based on: Need for prescription drug management The pt has a high risk of morbidity or mortality based on: Decision regarding hospitilization or escalation of hosp level of care - Departure Departure Disposition: Home Clinical Impression: UTI, Left flank pain Condition: Good Critical Care Time: No Referrals: CELESTINO VELEZ MD [Primary Care Provider] - Follow up/PCP as directed Instructions: Urinary Tract Infection, Adult ED, Flank Pain (DC) Additional Instructions: followup with your DrJulieta to check your treatment progress and for your right renal cyst and blood pressure control. Although the symptoms fit the findings of urinary infection there still may be other disease processes developing so this follow-up is important. There is also some calcium in your aorta to followup with your Dr. Prescriptions: Levofloxacin [Levofloxacin 500 MG Tablet] 500 mg PO DAILY #10 tablet
[2023-11-07 20:44] VITALS: TEMP 97
[2023-11-07 21:42] LABS: Appearance Clear (Clear); Bacteria Moderate /HPF (None Seen); Bilirubin Negative (Negative); Blood Negative (Negative); Epithelial Cells Few /HPF (None Seen); Glucose, Urine Negative (Negative); Hyaline Casts NONE SEEN /LPF (0-2); Ketones Negative (Negative); Leukocyte Esterase Large (Negative); Nitrite Negative (Negative); Ph 6.5 (4.6-8.0); Protein,Urine Dip Negative (Negative); RBC 0-2 /HPF (0-5); Specific Gravity 1.015 (1.005-1.030); WBC 21-50 /HPF (0-5)
[2023-11-07 21:43] LABS: ADD URINE CULTURE? YES (NO)
[2023-11-07 22:25] LABS: Absolute Neutrophil Ct (ANC) 3.45 x10^3/uL (1.4-6.9); BASOPHIL % 0.7 % (0.0-0.4); Basophil (Absolute #) 0.05 x10^3/uL (0-0.4); Eosinophil % 2.7 % (0.00-5.0); Hemoglobin 11.8 g/dL (12.0-16.0); IMMATURE GRAN # 0.02 x10^3u/L (0.00-0.03); IMMATURE GRAN % 0.3 % (0.00-0.4); Lymphocyte (Absolute #) 3.24 x10^3/uL (1.0-4.6); Lymphocytes % 43.3 % (24.0-44.0); Mean Cell Volume 90.5 fL (78-100); Mean Corpuscular Hemoglobin 28.9 pg (26-32); Mean Corpuscular Hgb Concent. 31.9 g/dL (32-36); Monocyte (Absolute #) 0.52 x10^3/uL (0.0-1.3); Platelet Count 294 x10^3/uL (150-450); Red Blood Count 4.09 x10^6/uL (4.1-5.4); Red Cell Distribution Width 13.5 % (11.5-14.0); White Blood Count 7.5 x10^3/uL (4.0-10.5)
[2023-11-07 22:36] LABS: ALBUMIN 3.8 g/dL (3.5-5.0); ALKALINE PHOSPHATASE 87 U/L (38-126); AMYLASE 85 U/L (30-110); ANION GAP 10.4 MEQ/L (5-15); BILIRUBIN,TOTAL < 0.10 mg/dL (0.2-1.3); BLOOD UREA NITROGEN 17 mg/dL (7-17); CHLORIDE 106 mmol/L (98-107); Calcium 9.4 mg/dL (8.4-10.2); Carbon Dioxide 26 mmol/L (22-30); Creatinine 1 0.72 mg/dL (0.52-1.04); EST GLOMERULAR FILTRATION RATE 87.1 ML/MIN; Glucose 106 mg/dL (74-106); LIPASE 78 U/L (23-300); Potassium 3.5 mmol/L (3.5-5.1); SGOT/AST 23 U/L (14-36); SGPT/ALT 16 U/L (0-35); SODIUM 139 mmol/L (135-145); Total Protein 6.9 g/dL (6.3-8.2)
[2023-11-07] MEDS ORDERED: Sodium Chloride 0.9% 1000 ML 1,000 ML ONE (22:48)
[2023-11-07] MEDS: Sodium Chloride 0.9% 1000 ML 1,000 ML IV SCH (22:49)
[2023-11-07] MEDS ORDERED: TYLENOL EXTRA STRENGTH 500 MG ONE (23:26)
[2023-11-07] MEDS ORDERED: ROCEPHIN 1 GM / 100 ML NaCl 1 GM/100 ML IVPB IV ONE (23:27)
[2023-11-07] MEDS: TYLENOL EXTRA STRENGTH 500 MG PO STA (23:27)
[2023-11-07] MEDS: ROCEPHIN 1 GM / 100 ML NaCl 1 GM/100 ML IVPB IV ONE (23:28)
--- NOTE | 2023-11-07 23:56 | XRAY ---
CLINICAL HISTORY: abdominal pain COMPARISON: None TECHNIQUE: CT scan of the abdomen and pelvis was performed without IV contrast. Coronal and sagittal reconstructive images were also obtained. One of the following dose reduction techniques were utilized for this exam: Automated exposure control, adjustment of the mA and/or kV according to patient size, and use of iterative reconstruction FINDINGS: Sections of the lower thorax show no significant abnormality. Abdomen: The liver is of average size. No focal or diffuse parenchymal abnormality. The portal vein, intrahepatic biliary radicals and the bile ducts are normal. The gallbladder is surgically removed. The spleen, pancreas, and adrenal glands are unremarkable. The kidneys are normal in size and shape. No calculi or hydronephrosis. A 4.8 x 4.7 x 4.8 cm partially exophytic simple renal cortical cyst was seen at the mid pole of right kidney. The ascending colon, the transverse colon, the descending colon are loaded with fecal matter. Redundant transverse and sigmoid colon identified The visualized small bowel loops are unremarkable. Appendix could not be well delineated due to closely approximated bowel loops in the right iliac fossa region, however, no inflammatory changes are seen in the right iliac fossa. The abdominal aorta shows atherosclerotic changes with calcified plaques. Pelvis: The urinary bladder is unremarkable. The rectosigmoid colon is fecal-loaded. The uterus is not visualized, or surgically removed. No evidence of pelvic lymphadenopathy. The lumbar spine shows degenerative changes. Bilateral hernia of the canal of nuck noted. IMPRESSION: 1. Fecal-loaded colon, possible constipation 2. Partially exophytic right renal cortical cyst, Bosniak category 1 3. Rest of the findings are as stated above. Electronically Signed by: Geronimo Ybarra MD. (11/07/2023 23:52:19 EDT)
[2023-11-08 00:37] VITALS: O2SAT 97
[2023-11-08 00:48] VITALS: BP 125/73; PULSE 68; RESP 20
== END 2023-11-08 00:58 | disposition home or self-care (01) ==
LOC: ED 20:31
DX: N39.0 Urinary tract infection, site not specified (principal); R10.9 Unspecified abdominal pain; E78.5 Hyperlipidemia, unspecified; Z79.899 Other long term (current) drug therapy
CPT/HCPCS: 36000; 36415; 74176; 80053; 81001; 82150; 83605; 83690; 84484; 85025; 87077; 87086; 87186; 96360; 96365; 99284; J0696; A9270-GY

== ENCOUNTER 2024-07-09 11:09 | Emergency (ER) | payer MEDICARE ==
[2024-07-09 11:21] VITALS: TEMP 99.6
--- NOTE | 2024-07-09 11:45 | ERPHSYRPT ---
- History of Present Illness Time Seen by Provider: 07/09/24 11:42 Source: patient Exam Limitations: no limitations Patient Subjective Stated Complaint: Cough Triage Nursing Assessment: Patient ambulated back to ED and transferred self to bed. Patient A+O X3. Patient's skin pink, warm and dry. Patient complains of cough that started earlier in the week. Patient states the cough has gotten worse. Patient complains of nausea. Patient states cough is non productive. Lungs noted to be coarse with wheezing noted. Patient denies pain or discomfort. Physician History: Patient complains of cough that started earlier in the week. Patient states the cough has gotten worse. Patient complains of nausea. Patient states cough is non productive. Timing/Duration: day(s) (5-6 days) Cough Quality/Degree: productive cough Possible Cause: no prior episodes Associated Symptoms: fever, chills, chest pain/soreness, cough, wheezing Allergies/Adverse Reactions: meperidine [From Demerol] Adverse Reaction (Verified 07/09/24 11:14) Vomiting Home Medications: Biotin 5,000 mcg PO DAILY 03/19/23 [History] Ubidecarenone [Co Q-10] 200 mg PO DAILY 03/19/23 [History] Sertraline HCl 50 mg [Zoloft 50 mg Tablet] 50 mg PO QDP 08/24/23 [History] Hx Tetanus, Diphtheria Vaccination/Date Given: Yes Hx Influenza Vaccination/Date Given: No Hx Pneumococcal Vaccination/Date Given: Yes Immunizations Up to Date: Yes Travel Risk - International Travel Have you traveled outside of the country in past 3 weeks: No - Emerging Infectious Disease Are you exhibiting symptoms associated with any current EIDs: Yes Symptoms: Cough: New Onset - Review of Systems Constitutional: Malaise, Weakness, No Fever, No Chills Eyes: No Symptoms Ears, Nose, & Throat: No Symptoms Respiratory: Cough, Dyspnea on Exertion ([place]), Wheezing, No Dyspnea Cardiac: No Chest Pain, No Edema, No Syncope Abdominal/Gastrointestinal: No Abdominal Pain, No Nausea, No Vomiting, No Diarrhea Genitourinary Symptoms: No Dysuria Musculoskeletal: No Back Pain, No Neck Pain Skin: No Rash Neurological: No Dizziness, No Focal Weakness, No Sensory Changes Psychological: No Symptoms Endocrine: No Symptoms All Other Systems: Reviewed and Negative - Past Medical History Pertinent Past Medical History: Yes Neurological History: TIA ENT History: No Pertinent History Cardiac History: High Cholesterol Respiratory History: Pneumonia Endocrine Medical History: No Pertinent History Musculoskeletal History: No Pertinent History GI Medical History: No Pertinent History History: No Pertinent History Psycho-Social History: No Pertinent History Female Reproductive Disorders: No Pertinent History Other Medical History: SURGICAL HISTORY: HYSTERECTOMY, LEFT ELBOW SCOPE - Past Surgical History Past Surgical History: Yes Neuro Surgical History: No Pertinent History Cardiac: No Pertinent History Respiratory: No Pertinent History Gastrointestinal: Appendectomy Genitourinary: No Pertinent History Musculoskeletal: Other Female Surgical History: Hysterectomy, Other Other Surgical History: "prolapse surgery" disc replaced in neck in 1986, appendectomy as a child - Social History Smoking Status: Never smoker Exposure to second hand smoke: No Drug Use: none Patient Lives Alone: No - Social Determinants of Health Will the patient participate in the screening: Yes Do you worry about a steady place to live?: No Do you have any problems with any of the following?: No known problems In the past 12 months,have you had to go without utilities?: No Transportation Issues: No Has anyone in your support network made you feel unsafe?: No Have you or anyone in your house had to go without enough: No - Nursing Vital Signs Nursing Vital Signs: Initial Vital Signs Temperature 99.6 F 07/09/24 11:16 Pulse Rate 96 H 07/09/24 11:16 Respiratory Rate 20 07/09/24 11:16 Blood Pressure 120/59 07/09/24 11:16 O2 Sat by Pulse Oximetry 95 07/09/24 11:16 Pain Scale Pain Intensity 0 - Physical Exam General Appearance: no apparent distress, alert Eye Exam: PERRL/EOMI, eyes nml inspection Ears, Nose, Throat Exam: normal ENT inspection, TMs normal, pharynx normal, moist mucous membranes Neck Exam: normal inspection, non-tender, supple, full range of motion Respiratory Exam: diminished breath sounds, crackles/rales, rhonchi, wheezing, No respiratory distress Cardiovascular Exam: regular rate/rhythm, normal heart sounds Gastrointestinal/Abdomen Exam: soft, No tenderness Back Exam: normal inspection, No CVA tenderness, No vertebral tenderness Extremity Exam: normal inspection, normal range of motion Neurologic Exam: alert, oriented x 3, cooperative, normal mood/affect, sensation nml, No motor deficits Skin Exam: normal color, warm, dry, No rash Lymphatic Exam: No adenopathy SpO2: 95 - Course Nursing assessment & vital signs reviewed: Yes - Radiology Exams Chest X-ray Interpretation: Interpreted by me, Reviewed by me, Infiltrates, Pneumonia Ordered Tests: Active Orders 24 hr Category Date Time Status EKG-ER Only STAT Care 07/09/24 11:38 Active IV Insertion STAT Care 07/09/24 11:38 Active CHEST 2 VIEWS (PA AND LAT) Stat Exams 07/09/24 12:05 Taken CBC W DIFF Stat Lab 07/09/24 11:50 Completed CMP Stat Lab 07/09/24 11:50 Completed MAGNESIUM Stat Lab 07/09/24 11:50 Completed Respiratory Therapy Assessment DAILY RT 07/09/24 12:18 Active Medication Summary Discontinued Medications Generic Name Dose Route Start Last Admin Trade Name Freq PRN Reason Stop Dose Admin Albuterol/Ipratropium 3 ml 07/09/24 11:38 07/09/24 12:18 Ipratropium/Albuterol Sulfate 3 Ml Ampul.Neb IH 07/09/24 11:39 3 ml STAT ONE Administration Albuterol/Ipratropium Confirm 07/09/24 11:55 Ipratropium/Albuterol Sulfate 3 Ml Ampul.Neb Administered 07/09/24 11:56 Dose 3 ml IH .STK-MED ONE Ceftriaxone Sodium 1,000 mg 07/09/24 12:08 07/09/24 12:22 Ceftriaxone Sodium 1000 Mg Inj Vial IM 07/09/24 12:09 1,000 mg STAT ONE Administration Ceftriaxone Sodium Confirm 07/09/24 12:19 Ceftriaxone Sodium 1000 Mg Inj Vial Administered 07/09/24 12:20 Dose 1,000 mg .ROUTE .STK-MED ONE Lidocaine HCl Confirm 07/09/24 12:19 Lidocaine Hcl 1% 20 Ml Mdv 20 Ml Ml Administered 07/09/24 12:20 Dose 2 ml .ROUTE .STK-MED ONE Lab/Rad Data: Laboratory Result Diagrams 07/09/24 11:50 07/09/24 11:50 Laboratory Results 07/09/24 07/09/24 07/09/24 Range/Units 11:50 11:50 11:50 WBC 15.9 H (3.98-10.04) x10^3/uL RBC 4.41 (3.93-5.22) x10^6/uL Hgb 12.8 (11.2-15.7) g/dL Hct 39.2 (34.1-44.9) % MCV 88.9 (79.4-94.8) fL MCH 29.0 (25.6-32.2) pg MCHC 32.7 (32.2-35.5) g/dL RDW 13.2 (11.7-14.4) % Plt Count 269 (182-369) x10^3/uL MPV 9.7 (9.4-12.3) fL Gran % 79.4 H (34.0-71.1) % Immature Gran % (Auto) 0.5 H (0.001-0.429) % Nucleat RBC Rel Count 0.0 (0.00-0.2) % Eos # (Auto) 0.22 (0.04-0.36) x10^3/uL Immature Gran # (Auto) 0.08 H (0.001-0.031) x10^3u/L Absolute Lymphs (auto) 2.11 (1.18-3.74) x10^3/uL Absolute Monos (auto) 0.82 (0.24-0.86) x10^3/uL Absolute Nucleated RBC 0.00 (0.00-0.012) x10^3u/L Lymphocytes % 13.2 L (19.3-51.7) % Monocytes % 5.1 (4.7-12.5) % Eosinophils % 1.4 (0.7-5.8) % Basophils % 0.4 (0.1-1.2) % Absolute Granulocytes 12.65 H (1.56-6.13) x10^3/uL Basophils # 0.06 (0.01-0.08) x10^3/uL Sodium 135 (135-145) mmol/L Potassium 3.7 (3.5-5.1) mmol/L Chloride 102 (98-107) mmol/L Carbon Dioxide 25 (22-30) mmol/L Anion Gap 12.4 (5-15) MEQ/L BUN 14 (7-17) mg/dL Creatinine 0.69 (0.52-1.04) mg/dL Estimated GFR 89.9 ML/MIN Glucose 94 (74-106) mg/dL Calcium 9.3 (8.4-10.2) mg/dL Magnesium 1.6 (1.6-2.3) mg/dL Total Bilirubin 0.50 (0.2-1.3) mg/dL AST 31 (14-36) U/L ALT 20 (0-35) U/L Alkaline Phosphatase 118 (38-126) U/L Serum Total Protein 7.4 (6.3-8.2) g/dL Albumin 4.1 (3.5-5.0) g/dL Influenza Type A Ag NEGATIVE (NEGATIVE) Influenza Type B Ag NEGATIVE (NEGATIVE) RSV (PCR) NEGATIVE (NEGATIVE) SARS-CoV-2 (PCR) NEGATIVE (NEGATIVE) - Progress Progress: unchanged Air Movement: fair Antibiotics given: Yes Counseled pt/family regarding: lab results, diagnosis, need for follow-up, rad results Medical Desision Making - Risk of complications Low Risk: Low risk of morbidity from additional dx testing or treatment - Departure Departure Disposition: Home Clinical Impression: Pneumonia Qualifiers: Pneumonia type: due to unspecified organism Laterality: right Lung location: lower lobe of lung Qualified Code(s): J18.9 - Pneumonia, unspecified organism Condition: Stable Critical Care Time: No Referrals: CELESTINO VELEZ MD [Primary Care Provider] - Follow Up with PCP/3 days Instructions: Pneumonia in adults Additional Instructions: Discharge/Care Plan CATRACHITA GARCIA was seen on 07/09/24 in the Emergency Room. The patient was counseled regarding Diagnosis,Lab results, Imaging studies, need for follow up and when to return to the Emergency Room. Prescriptions given: Discharge Note I have spoken with the patient and/or caregivers. I have explained the patient's condition, diagnosis and treatment plan based on the information available to me at this time. I have answered the patient's and/or caregiver's questions and addressed any concerns. The patient and/or caregivers have as good understanding of the patient's diagnosis, condition and treatment plan as can be expected at this point. The vital signs have been stable. The patient's condition is stable and appropriate for discharge from the emergency department. The patient will pursue further outpatient evaluation with the primary care physician or other designated or consulting physician as outlined in the discharge instructions. The patient and/or caregivers are agreeable to this plan of care and follow-up instructions have been explained in detail. The patient and/or caregivers have received these instruction. The patient/and or caregivers are aware that any significant change in condition or worsening of symptoms should prompt an immediate return to this or the closest emergency department or call 911. CATRACHITA GARCIA was seen on 07/09/24 n the Emergency Room. At that time you were treated for an emergent condition, during your visit Laboratory, Radiology and/or other procedures may have been ordered. It is very important that you follow-up with your Primary Care Physician CELESTINO VELEZ within the next 24-48 hours to review your Emergency Room visit and the final results of testing that was ordered. Some test results such as Urine Cultures, Blood Cultures, and other cultures if ordered will not be finalized for 24-48 hours. If you do not have a Primary Care Provider please call the medical records department at [phone] to obtain a copy of your results or you may sign into our patient portal to obtain these results by visiting us @ [email or web address] and completing the following steps: 1. Click on the Patient Portal link 2. Click the Patient Self Enrollment Link to complete the enrollment form and entering your 3. Once the enrollment form is completed you will receive an email with a temporary ID and password at the email address you provided. 4. Next choose a user name and password. Your user name must be at least 4 characters long and your password must be at least 4 characters long. 5. Choose a security question from the list and provide your answer to the question. If you already have signed into the Health Portal you may access your Health Care Information 22/02 by the following steps: 1. Login to our website @ [email or web address] 2. Enter your original user name and password. FAQS The [facility] Health Portal is an online tool that contains your Lab Results, Radiology Reports, Visit History, Discharge Instructions and Health Summary Lab and Radiology Results will not be available for 72 hours on the portal. The Portal is a secure site, passwords are encryted and URLs are re-written so they cannot be copied and pasted. You and authorized family members are the only ones who can access your Portal. Also there is a timeout feature that protects your information if you leave the Portal page open. If you have technical difficulty please use the Contact Us link on the page this will allow you to submit any questions you have regarding the Portal or you may contact the Medical Record Department at [phone]. Prescriptions: Albuterol Sulfate/Budesonide [Airsupra 90-80 Mcg Inhaler] 10.7 gm IH BID #1 inh Benzonatate 100 mg PO TID #15 cap Cefdinir 300 mg PO BID #15 cap
[2024-07-09 11:51] LABS: Absolute Neutrophil Ct (ANC) 12.65 x10^3/uL (1.56-6.13); BASOPHIL % 0.4 % (0.1-1.2); Basophil (Absolute #) 0.06 x10^3/uL (0.01-0.08); Eosinophil % 1.4 % (0.7-5.8); Eosinophil (Absolute #) 0.22 x10^3/uL (0.04-0.36); Hematocrit 39.2 % (34.1-44.9); Hemoglobin 12.8 g/dL (11.2-15.7); IMMATURE GRAN # 0.08 x10^3u/L (0.001-0.031); IMMATURE GRAN % 0.5 % (0.001-0.429); Lymphocyte (Absolute #) 2.11 x10^3/uL (1.18-3.74); Lymphocytes % 13.2 % (19.3-51.7); Mean Cell Volume 88.9 fL (79.4-94.8); Mean Corpuscular Hgb Concent. 32.7 g/dL (32.2-35.5); Mean Platelet Volume 9.7 fL (9.4-12.3); Monocyte (Absolute #) 0.82 x10^3/uL (0.24-0.86); Monocytes % 5.1 % (4.7-12.5); Neutrophil % 79.4 % (34.0-71.1); Platelet Count 269 x10^3/uL (182-369); Red Blood Count 4.41 x10^6/uL (3.93-5.22); Red Cell Distribution Width 13.2 % (11.7-14.4); White Blood Count 15.9 x10^3/uL (3.98-10.04)
[2024-07-09] MEDS ORDERED: DUONEB 0.5-3 MG/3 ml Neb IH ONE (11:55)
[2024-07-09 12:04] LABS: ALBUMIN 4.1 g/dL (3.5-5.0); ANION GAP 12.4 MEQ/L (5-15); BILIRUBIN,TOTAL 0.5 mg/dL (0.2-1.3); Calcium 9.3 mg/dL (8.4-10.2); Creatinine 1 0.69 mg/dL (0.52-1.04); EST GLOMERULAR FILTRATION RATE 89.9 ML/MIN; MAGNESIUM 1.6 mg/dL (1.6-2.3); Potassium 3.7 mmol/L (3.5-5.1); Total Protein 7.4 g/dL (6.3-8.2)
[2024-07-09] MEDS: DUONEB 0.5-3 MG/3 ml Neb IH ONE (12:18)
[2024-07-09] MEDS ORDERED: XYLOCAINE 1% HCL 20 ML MDV ONE (12:19)
[2024-07-09] MEDS ORDERED: Rocephin 1000 MG INJ ONE (12:19)
[2024-07-09] MEDS: Rocephin 1000 MG INJ IM ONE (12:22)
[2024-07-09 12:31] LABS: INFLUENZA A NEGATIVE (NEGATIVE); INFLUENZA B NEGATIVE (NEGATIVE); RESPIRATORY SYNCTIAL VIRUS NEGATIVE (NEGATIVE); SARS-CoV-2 Xpert Express NEGATIVE (NEGATIVE)
[2024-07-09 12:54] VITALS: O2SAT 95
[2024-07-09 12:57] VITALS: BP 111/52; PULSE 114; RESP 31
--- NOTE | 2024-07-09 18:42 | XRAY ---
Indication: Cough and congestion. Comparison: April 13, 2021 PA/lateral chest again hyperinflated with now subtle right infrahilar infiltrate/atelectasis. Stable incidental bilateral calcified granulomas. Heart not enlarged. Bony thorax intact again with osteopenia and degenerative changes.
== END 2024-07-09 13:22 | disposition home or self-care (01) ==
LOC: ED 11:09
DX: J18.9 Pneumonia, unspecified organism (principal); R05.9 Cough, unspecified
CPT/HCPCS: 0241U; 36415; 71046; 80053; 83735; 85025; 93005; 94640; 96372; 99285; 99284; J0696; A9270-GY